=== PATIENT | male | born 1995 | race Caucasian/White ===

== ENCOUNTER 2018-07-12 05:11 | Emergency (ER) | payer OTHER ==
[2018-07-12 05:18] VITALS: BMI 28.0
[2018-07-12 05:28] VITALS: BP 135/79; PULSE 67; RESP 18; TEMP 97.4; O2SAT 99
[2018-07-12] MEDS ORDERED: Albuterol-Ipratrop 3 mg / 0.5 (3 ml) UD IH STA (05:56)
[2018-07-12] MEDS ORDERED: Sodium Chloride 0.9% 1,000 ML IV STA (05:56)
--- NOTE | 2018-07-12 06:10 | ED PDOC ---
Arrival/HPI - General Historian: Patient - History of Present Illness Narrative History of Present Illness (Text): 07/12/18 06:19 23 y/o male with no significant PMH presents to the ED with one week h/o SOB. Patient was seen few days ago by his [facility] and was given an antibiotic and inhaler that failed to control his symptoms. Patient admits to returning to work while being sick, being around smokers and not having enough fluid intake. He denied cough, fever, chills, hemoptysis, palpitations, changes in bowel movements, N/V/D. 07/12/18 06:52 Time/Duration: < week Symptom Onset: Gradual Symptom Course: Worsening Severity Level: 8 Activities at Onset: Light Context: Exertion <Jr Houston - Last Filed: 07/12/18 07:07> <Nai Enrique - Last Filed: 07/14/18 14:21> - General Chief Complaint: Shortness Of Breath Time Seen by Provider: 07/12/18 05:39 Past Medical History - Provider Review Nursing Documentation Reviewed: Yes - Past History Past History: No Previous - Tetanus Immunization Tetanus Immunization: Unknown - Pulmonary Hx Respiratory Disorders: Yes Hx Bronchitis: Yes - Musculoskeletal/Rheumatological Hx Falls: No - Psychiatric Hx Depression: No Hx Emotional Abuse: No Hx Physical Abuse: No Hx Substance Use: No - Past Surgical History Past Surgical History: No Previous - Suicidal Assessment Feels Threatened In Home Enviroment: No <Jr Houston - Last Filed: 07/12/18 07:07> Family/Social History - Physician Review Nursing Documentation Reviewed: Yes Family/Social History: No Known Family HX Smoking Status: Current Some Days Smoker Hx Alcohol Use: No Hx Substance Use: No Hx Substance Use Treatment: No <Jr Houston - Last Filed: 07/12/18 07:07> Allergies/Home Meds <Jr Houston - Last Filed: 07/12/18 07:07> <Nai Enrique - Last Filed: 07/14/18 14:21> Allergies/Adverse Reactions: Allergies No Known Allergies Allergy (Verified 07/12/18 05:19) Home Medications: Home Meds Medication Instructions Recorded Confirmed RX: No Known Home Med 06/26/12 06/26/12 Review of Systems - Physician Review All systems were reviewed & negative as marked: Yes - Review of Systems Constitutional: Normal. absent: Fevers, Night Sweats Eyes: Normal ENT: Sore Throat Respiratory: SOB. absent: Cough, Sputum, Wheezing Cardiovascular: absent: Chest Pain, Palpitations, Edema Gastrointestinal: Normal. absent: Nausea, Vomiting Musculoskeletal: Myalgias Skin: Normal. absent: Rash Neurological: Headache Endocrine: absent: Diaphoresis <Jr Houston - Last Filed: 07/12/18 07:07> Physical Exam Vital Signs Reviewed: Yes Vital Signs Temp Pulse Resp BP Pulse Ox 07/12/18 05:28 97.4 F L 67 18 135/79 99 Temperature: Afebrile Blood Pressure: Normal Pulse: Regular Respiratory Rate: Normal Appearance: Positive for: Well-Appearing, Non-Toxic, Comfortable Pain Distress: None Mental Status: Positive for: Alert and Oriented X 3 - Systems Exam Head: Present: Atraumatic, Normocephalic Pupils: Present: PERRL Extroacular Muscles: Present: EOMI Conjunctiva: Present: Normal Ears: Present: NORMAL TM Mouth: Present: Dry Nose (External): Present: Atraumatic Nose (Internal): Present: No Active Bleeding, Engorged, Edematous, Boggy. No: Rhinorrhea, Purulent Mucous Neck: Present: Normal Range of Motion. No: Paraspinal Tenderness Respiratory/Chest: Present: Clear to Auscultation, Good Air Exchange. No: Respiratory Distress, Wheezes, Retracting, Rhonchi, Tender to Palpation Cardiovascular: Present: Regular Rate and Rhythm, Normal S1, S2 Abdomen: Present: Normal Bowel Sounds. No: Tenderness, Distention Back: Present: Normal Inspection Upper Extremity: Present: Normal Inspection. No: Cyanosis, Edema Lower Extremity: Present: Normal Inspection. No: Edema Neurological: Present: GCS=15, CN II-XII Intact Skin: Present: Warm, Dry, Normal Color Lymphatic: No: Cervical Adenopathy, Axillary Adenopathy Psychiatric: Present: Alert, Oriented x 3 <Jr Houston - Last Filed: 07/12/18 07:07> Vital Signs Temp Pulse Resp BP Pulse Ox 07/12/18 05:28 97.4 F L 67 18 135/79 99 <Nai Enrique - Last Filed: 07/14/18 14:21> Medical Decision Making ED Course and Treatment: 07/12/18 06:17 Duoneb, NS bolus given - Medication Orders Current Medication Orders: Sodium Chloride (Sodium Chloride 0.9%) 1,000 mls @ 999 mls/hr IV .Q1H1M STA Stop: 07/12/18 06:56 Discontinued Medications Albuterol/Ipratropium (Duoneb 3 Mg/0.5 Mg (3 Ml) Ud) 3 ml IH STAT STA Stop: 07/12/18 05:57 <Jr Houston - Last Filed: 07/12/18 07:07> ED Course and Treatment: 07/12/18 0650 Patient denies any recent travel or prolonged immobilization. Patient also c/o feeling gassy. - Medication Orders Current Medication Orders: Discontinued Medications Albuterol/Ipratropium (Duoneb 3 Mg/0.5 Mg (3 Ml) Ud) 3 ml IH STAT STA Stop: 07/12/18 05:57 Last Admin: 07/12/18 06:16 Dose: 3 ml Sodium Chloride (Sodium Chloride 0.9%) 1,000 mls @ 999 mls/hr IV .Q1H1M STA Stop: 07/12/18 06:56 Last Admin: 07/12/18 06:16 Dose: 999 mls/hr eMAR Start Stop Document 07/12/18 06:16 CNR (Rec: 07/12/18 06:17 CNR [id number]) Intravenous Solution Start Date 07/12/18 Start Time 06:17 End Date 07/12/18 End time 07:17 Total Infusion Time 60 <Nai Enrique - Last Filed: 07/14/18 14:21> Disposition/Present on Arrival - Present on Arrival Any Indicators Present on Arrival: No History of DVT/PE: No History of Uncontrolled Diabetes: No Urinary Catheter: No History of Decub. Ulcer: No History Surgical Site Infection Following: None - Disposition Have Diagnosis and Disposition been Completed?: Yes Disposition Time: 06:57 Patient Plan: Discharge <Jr Houston - Last Filed: 07/12/18 07:07> - Present on Arrival Any Indicators Present on Arrival: No History of DVT/PE: No History of Uncontrolled Diabetes: No Urinary Catheter: No History of Decub. Ulcer: No History Surgical Site Infection Following: None - Disposition Have Diagnosis and Disposition been Completed?: Yes Patient Plan: Discharge <Nai Enrique - Last Filed: 07/14/18 14:21> - Disposition Diagnosis: Upper respiratory infection, Bloating symptom Disposition: HOME/ ROUTINE Condition: STABLE Discharge Instructions (ExitCare): Viral Upper Respiratory Infection, Adult (DC), Gas and Bloating Additional Instructions: TERESA DODD, thank you for letting us take care of you today. Your provider was Nai Enrique MD and you were treated for unable to breathe. The emergency medical care you received today was directed at your acute symptoms. If you were prescribed any medication, please fill it and take as directed. It may take several days for your symptoms to resolve. Return to the Emergency Department if your symptoms worsen, do not improve, or if you have any other problems. Stop smoking. Contact your doctor for help to stop smoking. Get plenty of rest and drink plenty of fluids. Please contact your doctor in 1-2 days for a follow up appointment. Bring any paperwork you were given at discharge with you along with any medications you are taking to your follow up visit. Our treatment cannot replace ongoing medical care by a primary care provider outside of the emergency department. Thank you for allowing the [facility] team to be part of your care today. Referrals: Alberta Perez MD [Primary Care Provider] - Follow up with primary Forms: [employer] ([place]), WORK NOTE
[2018-07-12] MEDS ORDERED: Albuterol-Ipratrop 3 mg / 0.5 (3 ml) UD ONE (06:11)
== END 2018-07-12 07:15 | disposition home or self-care (01) ==
LOC: ED 05:11
DX: J06.9 Acute upper respiratory infection, unspecified (principal); F17.210 Nicotine dependence, cigarettes, uncomplicated
CPT/HCPCS: 96360; 99283; J7030